=== PATIENT | female | born 1965 | race Caucasian/White ===

== ENCOUNTER 2018-01-02 18:39 | Emergency (ER) | payer SELFPAY ==
[~2018-01-02] VITALS: Ht 162.6 cm; Wt 76.9 kg
[~2018-01-02 18:39] MED LIST: AMPH20TA2 PO; ARIP5TAB13 PO; FLUO20CA19 PO; TRAZ150T62 PO; ZOLP-413 PO
[2018-01-02 18:45] VITALS: BP 129/84
== END 2018-01-02 19:30 | disposition home or self-care (01) ==
LOC: ED 19:01
DX: S83.201A Bucket-handle tear of unspecified meniscus, current injury, left knee, initial encounter (principal); I10 Essential (primary) hypertension; F17.200 Nicotine dependence, unspecified, uncomplicated; X58.XXXA Exposure to other specified factors, initial encounter; Y93.89 Activity, other specified; Y92.89 Other specified places as the place of occurrence of the external cause; Y99.8 Other external cause status
CPT/HCPCS: 29505; 99283

== ENCOUNTER 2021-01-04 06:56 | Emergency (ER) | payer MEDICAID, OTHER ==
[~2021-01-04] VITALS: Ht 162.6 cm; Wt 75.2 kg
--- NOTE | 2021-01-04 07:29 | NUR ---
PT PRESENTS TO ED WITH C/O R HIP PAIN X3 MONTHS, STATES IT IS GETTING PROGRESSIVELY WORSE. DENIES TRAUMA. PT ABLE TO WALK WITH STEADY GAIT. PT A&O, RESPS EVEN AND UNLABORED, RUTH, CATRINA. ERPA AT BEDSIDE DHAVAL CARDENAS.
[2021-01-04] MEDS ORDERED: KETOROLAC 30 MG/1 ML IM ONE (07:30)
[2021-01-04] MEDS ORDERED: METHOCARBAMOL 750 MG TABLET PO ONE (07:30)
--- NOTE | 2021-01-04 07:37 | NUR ---
PT TO CT
--- NOTE | 2021-01-04 08:00 | NUR ---
pt back from ct
[2021-01-04] MEDS ORDERED: METHOCARBAMOL 750 MG TABLET ONE (08:05)
[2021-01-04] MEDS ORDERED: KETOROLAC 30 MG/1 ML ONE (08:05)
[2021-01-04 08:18] VITALS: BP 129/73
--- NOTE | 2021-01-04 08:19 | NUR ---
PT MEDICATED PER ORDER, TOLERATED WELL. PT RESTING IN BED, A&O, RESPS EVEN AND UNLABORED, VSS, NADN. CALL LIGHT IN REACH, FRIEND AT BEDSIDE.
--- NOTE | 2021-01-04 09:02 | NUR ---
ER DIPAK FLOYD AT BEDSIDE TO DISCUSS POC
--- NOTE | 2021-01-04 09:12 | NUR ---
PT EDUCATED ON DISCHARGE INSTRUCTIONS, VERBALIZED UNDERSTANDING. AMBULATORY TO DISCHARGE WITH STEADY GAIT, NO COMPLAINTS AT TIME OF DISCHARGE.
== END 2021-01-04 09:14 | disposition home or self-care (01) ==
LOC: ED 08:49
DX: M25.551 Pain in right hip (principal); M25.561 Pain in right knee; F17.210 Nicotine dependence, cigarettes, uncomplicated
CPT/HCPCS: 73564; 73700; 96372; 99284; J1885